=== PATIENT | female | born 1955 | race Caucasian/White ===

== ENCOUNTER → 2020-12-10 | Outpatient (CLI) | payer OTHER ==
[~2020-12-10] MED LIST: ACYC800T PO; ASPI-556 PO; CALC-979 PO; CANA300T PO; CETI10CA5 PO; CHOL50004 PO; DOXYCYCLINE PO; GLIM4TAB36 PO; LISI2.5T2 PO; LOVA40TA2 PO; METF-446 PO; MONT10TA96 PO; PANT40TA54 PO; TRIAM/HCTZ PO; VITA1TAB39 PO
== END | disposition home or self-care (01) ==
LOC: RAH 12:54
PROVIDERS: ATTEND Nurse Practitioner Family
DX: M17.11 Unilateral primary osteoarthritis, right knee (principal)
CPT/HCPCS: 73560